=== PATIENT | male | born 1975 | race Caucasian/White ===

== ENCOUNTER 2020-11-11 02:01 | Emergency (ER) | payer SELFPAY ==
[2020-11-11 02:10] VITALS: BP 130/80; PULSE 66; RESP 16; TEMP 37.2; O2SAT 96; BMI 27.1
--- NOTE | 2020-11-11 02:15 | XRR_ITS ---
PROCEDURE INFORMATION: Exam: XR Chest Exam date and time: 11/11/2020 2:15 AM Age: 45 years old Clinical indication: Cough and fever; Patient HX: Covid symptoms. Cough, fever, body aches. TECHNIQUE: Imaging protocol: XR of the chest. Views: 2 views. COMPARISON: Chest X-Ray 08/29/2018 5:21 PM FINDINGS: Lungs: No CHF/pulmonary edema. The lungs appear essentially clear. Pleural spaces: No visible pneumothorax. No pleural fluid. Heart/Mediastinum: As before, there is moderate to severe cardiomegaly. Large central pulmonary arteries, especially on the left, possibly indicating pulmonary arterial hypertension. No significant interval change. Bones/joints: No significant acute finding. XR/XR chest 2V* [id number] IMPRESSION: 1. No definite pneumonia or CHF. 2. Moderate to severe cardiomegaly. 3. Other findings discussed above.
--- NOTE | 2020-11-11 02:28 | W.ED.COVID ---
HPI - COVID General: Chief Complaint: COVID symptoms Stated Complaint: Covid Symp Time Seen by Provider: 11/11/20 02:14 Source: patient and family Mode of arrival: ambulatory Limitations: no limitations Triage information: Has fever, cough or shortness of breath. No known COVID + exposure last 14 days History of Present Illness: HPI Narrative: Patient is a 45-year-old male who presents to ED today along with his for COVID-like symptoms. states 2 days ago he began having a headache along with sinus pain/pressure, and drainage. states today he began running fevers of 102, had diffuse body aches, chills, and fatigue. Patient is fully vaccinated for COVID. No sick contacts. No vomiting, abdominal pain, or diarrhea. MD complaint: has COVID symptoms Prior covid testing: no COVID 19 common symptoms: positive fever(s), chills, cough, non-productive cough, dyspnea, fatigue, body aches, headache(s) and nasal congestion; negative throat pain, nausea, vomiting or diarrhea COVID 19 other sytmptoms: positive chest pain; negative confusion Treatment prior to arrival: cold medicine COVID Results: SARS-CoV-2 Antigen (Rapid) Negative (Negative) 11/11/20 02:45 11/11/20 Review of Systems Const: Reports: fever(s), chills, body aches and fatigue Eyes: Denies: change in vision, blurry vision, photophobia, floaters or seeing flashes ENMT: Reports: nasal discharge, nasal congestion and sinus pain; Denies: throat pain, odynophagia, ear or mastoid pain, ear discharge or epistaxis Card: Reports: chest pain and dyspnea on exertion; Denies: palpitations, irregular heart rhythm, edema, swelling of feet/ankles, lightheadedness, syncope or pre-syncope Resp: Reports: dyspnea, non-productive cough and chest congestion; Denies: wheezing or hemoptysis GI: Denies: abdominal pain, nausea, vomiting or diarrhea Musc: Denies: neck pain, back pain, extremity pain or joint pain Skin/Breast: Denies: rash Neuro: Reports: headache(s); Denies: sensory changes, lack of coordination, difficulty walking, dizziness, confusion, Slurred speech present or difficulty communicating thoughts Physical Exam Const: COMMON NORMALS: no acute distress, average body habitus, patient oriented x3, no limitations, healthy appearing, alert and well nourished GENERAL APPEARANCE: cooperative ORIENTATION/CONSCIOUSNESS: Yes awake, Yes oriented to person, Yes oriented to place and Yes oriented to time HENMT: COMMON NORMALS: normocephalic and atraumatic HEAD & SCALP: normocephalic and atraumatic FACE & SINUS: sinus tenderness Neck/C-Spine: COMMON NORMALS: no lymphadenopathy Resp: COMMON NORMALS: normal respiratory effort and clear to auscultation bilaterally AUSCULTATION: clear to auscultation bilaterally Cardio: COMMON NORMALS: regular rate and regular rhythm RATE: regular rate RHYTHM: regular rhythm Back/Pelvis: THORACIC SPINE/UPPER BACK: Yes kyphosis present Extremity: GENERAL: Yes normal exam except as noted Neuro: COMMON NORMALS: patient oriented x3 SENSORIUM/ORIENTATION: Yes alert, Yes oriented to person, Yes oriented to place and Yes oriented to time Skin: COMMON NORMALS: no rashes or lesions noted GENERAL SKIN EXAM: no rashes or lesions noted Course Vital Signs: Vital signs: Vital Signs Temperature 98.9 F 11/11/20 02:10 Pulse Rate 60 11/11/20 03:54 Respiratory Rate 18 11/11/20 03:54 Blood Pressure 119/73 11/11/20 03:54 Pulse Oximetry 99 11/11/20 03:54 MDM - COVID MDM Narrative: Medical decision making narrative: Patient clinically appears well. Vitals stable. Rapid COVID neg. Will obtain PCR prior to DC. Recommend conservative management at this time. Return to ED precautions given. Lab Data: Labs: Lab Results 11/11/20 11/11/20 Range/Units 02:45 02:45 Influenza Type A A g Negative (Negative) Influenza Type B A g Negative (Negative) SARS-CoV-2 Ag (Rap id) Negative (Negative) Imaging Data: CXR: Radiologist's impression: [address] [id number] ReportSigned Patient: Mickey Arizmendi #: [id number]: 1975Acct#:[id number]/Sex: 45 / MADM Date: 11/11/20Loc: ERRoom/Bed:Attending Dr: Ordering Provider/Ordering MD: Jennifer Chand Date of Service: 11/11/20 Procedure(s): XR chest 2V* [id number] Accession Number(s): [id number] Report Number: [id number] PROCEDURE INFORMATION: Exam: XR Chest Exam date and time: 11/11/2020 2:15 AM Age: 45 years old Clinical indication: Cough and fever; Patient HX: Covid symptoms. Cough, fever, body aches. TECHNIQUE: Imaging protocol: XR of the chest. Views: 2 views. COMPARISON: Chest X-Ray 08/29/2018 5:21 PM FINDINGS: Lungs: No CHF/pulmonary edema. The lungs appear essentially clear. Pleural spaces: No visible pneumothorax. No pleural fluid. Heart/Mediastinum: As before, there is moderate to severe cardiomegaly. Large central pulmonary arteries, especially on the left, possibly indicating pulmonary arterial hypertension. No significant interval change. Bones/joints: No significant acute finding. XR/XR chest 2V* [id number] IMPRESSION: 1. No definite pneumonia or CHF. 2. Moderate to severe cardiomegaly. 3. Other findings discussed above. Dictated By:Dayne Brito MDSigned By:Dayne Brito MDSigned Date/Time:11/11/206DD/ 3 COVID Results: SARS-CoV-2 Antigen (Rapid) Negative (Negative) 11/11/20 02:45 11/11/20 Discharge Plan Discharge Patient Disposition: Home Clinical Impression: Viral infection Condition: Stable Discharge Orders: Discharge ED (Routine); Ordered 11/11/20 Ordered By: Jennifer Chand Patient Instructions: Viral Syndrome (ED) Activity Restrictions/Additional Instructions: As we discussed you need to quarantine until your PCR results return. If negative you still need to stay away from other people if you are feeling ill. If results are positive you need to quarantine for a full 10 days. You may return to the emergency department for worsening symptoms, severe shortness of breath or difficulty breathing, or any other concerns you may have. I hope you begin to feel better soon. Coding Level of Care Code ED Occupational Therapist'S Assistant for Rolanda Fwanders Exam Comprehensive
[2020-11-11 03:28] LABS: Influenza A by IFA Negative (Negative); Influenza B by IFA Negative (Negative); SARS Covid-2 Antigen Negative (Negative)
[2020-11-11 03:45] VITALS: O2SAT 96
[2020-11-11 03:54] VITALS: BP 119/73; PULSE 60; RESP 18; O2SAT 99
== END 2020-11-11 03:55 | disposition home or self-care (01) ==
PROVIDERS: Emergency Provider Physician Assistant
DX: B34.9 Viral infection, unspecified (principal); Z20.822 Contact with and (suspected) exposure to COVID-19
CPT/HCPCS: 71046; 87426; 87804; 99282

== ENCOUNTER 2023-08-25 14:07 | Emergency (ER) | payer OTHER, SELFPAY ==
[2023-08-25 14:12] VITALS: BP 127/84; PULSE 92; RESP 16; TEMP 36.6; O2SAT 94
--- NOTE | 2023-08-25 14:32 | XRR_ITS ---
PROCEDURE INFORMATION: Exam: XR Right Ankle Exam date and time: 08/25/2023 2:40 PM Age: 48 years old Clinical indication: Injury or trauma; Other: Smashed foot; Blunt trauma; Ankle and foot; Right TECHNIQUE: Imaging protocol: Radiologic exam of the right ankle. Views: 3 or more views. COMPARISON: CR XR foot RT min 3V* [id number] 08/25/2023 2:40 PM FINDINGS: Bones/joints: Alignment is normal. Joint spaces are preserved. No acute fracture. Soft tissues: Visible soft tissues are unremarkable. XR/XR ankle RT min 3V* [id number] IMPRESSION: No acute findings.
--- NOTE | 2023-08-25 14:32 | XRR_ITS ---
PROCEDURE INFORMATION: Exam: XR Right Foot Exam date and time: 08/25/2023 2:40 PM Age: 48 years old Clinical indication: Injury or trauma; Other: Smashed foot; Blunt trauma; Right TECHNIQUE: Imaging protocol: Radiologic exam of the right foot. Views: 3 or more views. COMPARISON: CR XR ankle RT min 3V* [id number] 08/25/2023 2:40 PM FINDINGS: Bones/joints: Alignment is normal. Joint spaces are preserved. No acute fracture. Soft tissues: Visible soft tissues are unremarkable. XR/XR foot RT min 3V* [id number] IMPRESSION: No acute findings.
--- NOTE | 2023-08-25 14:32 | W.ED.LOWEXIN ---
HPI - Extremity Injury (Lower) General: Chief Complaint: Extremity Injury, Lower Stated Complaint: Right foot smashed by log Time Seen by Provider: 08/25/23 14:26 Source: patient Mode of arrival: ambulatory Limitations: no limitations History of Present Illness: Patient is a 48-year-old male who presents to ED today valuation of a right foot and ankle injury that he sustained just prior to arrival while at work. He states a log rolled down his leg and got stuck on his foot and ankle. They had to have a machine lift the log from his extremity. No pain to tib/fib area although does have mild abrasions here. States he is UTD on tetanus immunization. Denies numbness/tingling/loss of sensation. MD complaint: ankle injury and foot injury Onset (ago): hour(s) Injury: Right: ankle and foot Type of Injury: blunt and other (crush) Place: work Severity: moderate Relieving factors: immobilization Exacerbating factors: weight bearing and palpation Context: direct blow Associated symptoms: Reports inability to bear weight Other symptoms: none Review of Systems Musc: Reports: extremity pain and joint pain; Denies: joint swelling, joint redness or joint warmth Skin/Breast: Reports: other (mild skin abrasions) Neuro: Denies: numbness in extremities, weakness in extremities or sensory changes Physical Exam Const: COMMON NORMALS: no acute distress, average body habitus, patient oriented x3, no limitations, healthy appearing, alert and well nourished Extremity: COMMON NORMALS: capillary refill normal, no joint enlargement, no clubbing, cyanosis or edema, no calf tenderness and no pedal edema GENERAL: Yes normal exam except as noted LEFT LOWER EXTREMITY: Yes ankle joint and Yes foot & digits OTHER: Patient has mild abrasions to the anterior aspect of his left lower leg. He has no swelling or tenderness to his lower leg compartments. He has pain throughout his left ankle and dorsum of the left foot with minor abrasions again noted. No gross bony abnormalities. Pulses are easily palpable. Sensation is normal. Cap refill is brisk. Neuro: COMMON NORMALS: patient oriented x3, moves all extremities, no focal motor deficits and no sensory deficits noted SENSORIUM/ORIENTATION: Yes alert GAIT: Yes Unable to assess gait Skin: TRAUMA: abrasion Course Vital Signs: Vital signs: Vital Signs Temperature 97.9 F 08/25/23 14:12 Pulse Rate 92 08/25/23 14:12 Respiratory Rate 16 08/25/23 14:12 Blood Pressure 127/84 08/25/23 14:12 Pulse Oximetry 94 08/25/23 14:12 MDM - Extremity Injury (Lower) Medical Decision Making XRs personal interpretation are negative. No evidence of compartment syndrome at this time. Return to ED precautions given. He was given an LISSETTE wrap/crutches and he will follow-up with Worker's Comp. Differential Diagnosis Likely ankle sprain and strain Medical Records I reviewed the patient's medical records. XR interpretation done by ED provider, pending radiology final review Discharge Plan Discharge Patient Disposition: Home Clinical Impression: Contusion of ankle, right Qualifiers: Encounter type: initial encounter Qualified Code(s): S90.01XA - Contusion of right ankle, initial encounter Contusion of foot, right Qualifiers: Encounter type: initial encounter Qualified Code(s): S90.31XA - Contusion of right foot, initial encounter Condition: Stable Discharge Orders: Discharge ED (Routine); Ordered 08/25/23 Ordered By: Jennifer Chand Activity Restrictions/Additional Instructions: As we discussed use the LISSETTE wrap and crutches as needed for the rest of the next few days. Weight bearing as tolerated. You can ice and elevate the extremity. As we discussed, you need to follow-up for Worker's Comp. through your Human Resources department. Coding Level of Care Code ED Rf Engineer for Rolanda Latif
[2023-08-25 15:27] VITALS: BP 131/83; PULSE 76; RESP 16; O2SAT 95
== END 2023-08-25 15:29 | disposition home or self-care (01) ==
PROVIDERS: Emergency Provider Physician Assistant
DX: S90.01XA Contusion of right ankle, initial encounter (principal); S90.31XA Contusion of right foot, initial encounter; W20.8XXA Other cause of strike by thrown, projected or falling object, initial encounter
CPT/HCPCS: 73610; 73630; 99283